=== PATIENT | male | born 1935 | race Caucasian/White ===

== ENCOUNTER 2017-04-03 18:03 | Inpatient (IN) ==
[2017-04-03] MEDS ORDERED: *HR* LORazepam Oral Conc 2 MG/ML SL PRN (19:40)
[2017-04-03] MEDS ORDERED: Morphine Oral CONC 5 MG/0.25 ML ORAL.SYG SL PRN (19:42)
[2017-04-03] MEDS ORDERED: Acetaminophen 650 MG RECTAL SUPP RC PRN (19:46)
[2017-04-03] MEDS: Morphine Oral CONC 5 MG/0.25 ML ORAL.SYG SL PRN (21:04)
[2017-04-04] MEDS: Morphine Oral CONC 5 MG/0.25 ML ORAL.SYG SL PRN ×4 (03:29→23:36)
--- NOTE | 2017-04-04 16:22 | Internal Med History&Physical ---
Date of Encounter: 04/04/17 Time of Encounter: 15:50 Assessment and Plan (1) Bladder cancer Current visit: Yes Status: Acute Multiple sites of metastases. He has been declared DNR CC. Comfort measures will be given. Expected survival is 5-7 days. Qualifiers: Bladder location: unspecified site Qualified Code(s): C67.9 - Malignant neoplasm of bladder, unspecified Internal Medicine - H&P: HPI Chief complaint: Metastatic bladder cancer Admitted From: Hospital to Hospital Transfer History of present illness: Mr. Antoine is a 81 year old male who was admitted from [facility] to general inpatient hospice at [facility] for pain control. He was diagnosed a few weeks ago with bladder cancer. 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 He was admitted to hospice service yesterday for pain control and other comfort measures. There was no previous history of malignancy prior to the bladder cancer. He has anemia. Past Med Surg Social Fam HX - Past Medical History Medical history: cancer, CVA, hyperlipidemia, hypertension, kidney stones Psychiatric history: no psych history - Past Surgical History Surgical History: cataract, other - Social History Smoking Status: Former smoker Smokeless Tobacco Status: No Alcohol use: none Drug use: none - Family History Father Living Status: Hx Family Cardiac Disorders: Yes (HTN) Internal Medicine - H&P: Meds Acetaminophen [Tylenol] 1,000 mg PO HS 02/22/17 [History] Cholecalciferol (D-3) [Vitamin D] 1,000 unit PO DAILY 02/22/17 [History] Ferrous Sulfate [Iron] 325 mg PO DAILY 02/22/17 [History] Warfarin [Coumadin] 2.5 mg PO 3XW 02/22/17 [History] Warfarin [Coumadin] 5 mg PO 4XW 02/22/17 [History] Metoprolol Tartrate [Lopressor] 50 mg PO BID #60 tablet 03/12/17 [Rx] 3 Allergy/AdvReac Type Severity Reaction Status Date / Time No Known Allergies Allergy Verified 02/22/17 12:50 All Systems PM: A 10-system review of systems was performed and is negative for pertinent findings except as documented above in the HPI. Review of systems: Review of systems is obtained from the patient's daughter. Patient is lethargic. Gen.: His weight has decreased approximately 10 pounds in the past few weeks Cardiovascular: He has history of hypertension but no IA heart failure angina DVT or pulmonary embolus. He had abdominal aortic aneurysm with endograft procedure several years ago. Respiratory: He smoked from age [age] and has a diagnosis of COPD. GI: He has metastases from bladder cancer to liver. There is no other known disorders of liver gallbladder or exocrine pancreas : He had bladder cancer and metastases as per above. He has chronic kidney disease. Neurologic: He had numerous mini strokes in the past with right arm weakness and numbness. He has had no seizures. Endocrine: He has history of hyperlipidemia but no known diabetes or thyroid disease Hematology/oncology: As per history of present illness Psychiatric: He has no anxiety depression or other mental health issues Muscle skeletal: He has no significant DJD gout or other bone joint or muscle disorders. - Constitutional Vitals: Temp Pulse Resp BP Pulse Ox 97.7 F 78 16 107/65 97 04/03/17 18:58 04/03/17 18:58 02 18:58 04/03/17 18:58 04/03/17 18:58 Exam: Gen.: He is a well-developed well-nourished male lying in bed who is lethargic but awakens to answer an occasional question with a short answer. 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 The right eye shows no scleral icterus. Mouth: Mucosa is dry Neck: There is no thyromegaly or adenopathy noted. Heart: Tachycardic at rate approximately 124/m. Lungs: No wheezes or crackles are heard. Abdomen: Soft and nontender. No masses or guarding are noted. Extremities: There is no cyanosis edema or clubbing noted. Dorsalis pedis and posttibial pulses are 1-2 over 2 bilaterally. Neurologic: Mental status: He is able to answer an occasional yes/no question. Cranial nerves: Smile is symmetric. Forehead wrinkles bilaterally. Tongue protrudes midline. EOMI. Motor: There is no pronator drift. Cerebellar: Finger to nose is intact bilaterally. Skin: Warm and dry
[2017-04-04] MEDS: *HR* FentaNYL PATCH 25 MCG PATCH TD SCH (17:17)
[2017-04-05] MEDS: Morphine Oral CONC 5 MG/0.25 ML ORAL.SYG SL PRN (04:07)
[2017-04-05] MEDS ORDERED: *HR* LORazepam Oral Conc 2 MG/ML SL PRN (11:10)
--- NOTE | 2017-04-05 11:20 | Internal Med Progress Note ---
Date of Encounter: 04/05/17 Time of Encounter: 11:10 - Assessment and plan (1) Bladder cancer Current Visit: Yes Status: Acute Assessment and plan: April 04. Continue present comfort measures. Qualifiers: Bladder location: unspecified site Qualified Code(s): C67.9 - Malignant neoplasm of bladder, unspecified - Subjective Interval history: April 05. No new problems have arisen. He is less responsive per family report. - Constitutional Vitals: Temp Pulse Resp BP Pulse Ox 98.2 F 87 16 118/63 95 04/05/17 07:10 04/05/17 07:10 04/05/17 07:10 04/05/17 07:10 04/05/17 07:10 Exam: He is lying in bed and appears in no severe distress. He is slightly responsive to voice and light touch. Heart is regular with rate 108/m. Lungs are clear anteriorly. Consult Discharge Plan - Plan Referrals: Dieudonne Barbosa MD [Primary Care Provider] - 1 week
[2017-04-06] MEDS: Morphine Oral CONC 5 MG/0.25 ML ORAL.SYG SL PRN ×4 (01:27→17:51)
--- NOTE | 2017-04-06 11:17 | Internal Med Progress Note ---
Date of Encounter: 04/06/17 Time of Encounter: 11:10 - Assessment and plan (1) Bladder cancer Current Visit: Yes Status: Acute Assessment and plan: April 04. Continue present comfort measures. Qualifiers: Bladder location: unspecified site Qualified Code(s): C67.9 - Malignant neoplasm of bladder, unspecified - Subjective Interval history: April 05. No new problems have arisen. He is less responsive per family report. April 06. No new problems have arisen. He is more responsive today. - Constitutional Vitals: Temp Pulse Resp BP Pulse Ox 98.5 F 116 18 116/77 88 04/06/17 06:35 04/06/17 06:35 04/06/17 06:35 04/06/17 06:35 04/06/17 06:35 Exam: His eyes are open and he is able to respond somewhat to questions. Heart is regular rate approximately 112/m. Lungs are clear anteriorly. Extremities show no edema. Reviewed his medications Consult Discharge Plan - Plan Referrals: Dieudonne Barbosa MD [Primary Care Provider] - 1 week
[2017-04-07] MEDS: Morphine Oral CONC 5 MG/0.25 ML ORAL.SYG SL PRN (12:17)
--- NOTE | 2017-04-07 12:18 | Internal Med Progress Note ---
Date of Encounter: 04/07/17 Time of Encounter: 12:00 - Assessment and plan (1) Bladder cancer Current Visit: Yes Status: Acute Assessment and plan: April 04. Continue present comfort measures. Qualifiers: Bladder location: unspecified site Qualified Code(s): C67.9 - Malignant neoplasm of bladder, unspecified - Subjective Interval history: April 05. No new problems have arisen. He is less responsive per family report. April 06. No new problems have arisen. He is more responsive today. April 07. No new problems have arisen. - Constitutional Vitals: Temp Pulse Resp BP Pulse Ox 97.8 F 102 20 106/73 77 04/07/17 10:43 04/07/17 10:43 04/07/17 10:43 04/07/17 10:43 04/07/17 10:43 Exam: He is lying in bed resting. He Opens His Eyes to Voice and Light Touch but Makes No Attempt to Speak. Heart Is Regular with Rate Approximately 108/M. Lungs Are Clear Anteriorly. Extremities Show No Edema. Consult Discharge Plan - Plan Referrals: Dieudonne Barbosa MD [Primary Care Provider] - 1 week
[2017-04-07] MEDS: *HR* FentaNYL PATCH 25 MCG PATCH TD SCH (17:24)
--- NOTE | 2017-04-08 10:10 | Internal Med Progress Note ---
Date of Encounter: 04/08/17 Time of Encounter: 10:00 - Assessment and plan (1) Bladder cancer Current Visit: Yes Status: Acute Assessment and plan: April 04. Continue present comfort measures. Qualifiers: Bladder location: unspecified site Qualified Code(s): C67.9 - Malignant neoplasm of bladder, unspecified - Subjective Interval history: April 05. No new problems have arisen. He is less responsive per family report. April 06. No new problems have arisen. He is more responsive today. April 07. No new problems have arisen. April 08. No new problems have arisen. - Constitutional Vitals: Temp Pulse Resp BP Pulse Ox 99.0 F 103 24 101/67 79 04/07/17 18:00 04/07/17 18:00 04/07/17 18:00 04/07/17 18:00 04/07/17 18:00 Exam: He is lying in bed with no significant response to voice or light touch. Lungs showed upper airway rhonchi. Heart tones are too soft to be heard. Pulses not easily palpable. Extremities show no edema. Consult Discharge Plan - Plan Referrals: Dieudonne Barbosa MD [Primary Care Provider] - 1 week
[2017-04-08] MEDS: Morphine Oral CONC 5 MG/0.25 ML ORAL.SYG SL PRN (22:40)
[2017-04-09] MEDS ORDERED: *HR* FentaNYL PATCH 75 MCG PATCH TD SCH (10:30)
[2017-04-09] MEDS: Morphine Oral CONC 5 MG/0.25 ML ORAL.SYG SL PRN ×2 (15:01→20:48)
[2017-04-10] MEDS ORDERED: *HR* FentaNYL PATCH 25 MCG PATCH TD SCH (09:00)
[2017-04-10] MEDS: Morphine Oral CONC 5 MG/0.25 ML ORAL.SYG SL PRN ×2 (13:02→19:39)
--- NOTE | 2017-04-10 15:12 | Internal Med Progress Note ---
Date of Encounter: 04/10/17 Time of Encounter: 15:00 - Assessment and plan (1) Bladder cancer Current Visit: Yes Status: Acute Assessment and plan: April 04. Continue present comfort measures. April 10. Duragesic patch was increased yesterday to 75 g/hr because of evidence of inadequate pain control. Qualifiers: Bladder location: unspecified site Qualified Code(s): C67.9 - Malignant neoplasm of bladder, unspecified - Subjective Interval history: April 05. No new problems have arisen. He is less responsive per family report. April 06. No new problems have arisen. He is more responsive today. April 07. No new problems have arisen. April 08. No new problems have arisen. April 10. No new problems have arisen. - Constitutional Vitals: Temp Pulse Resp BP Pulse Ox 98 F 95 24 102/58 93 04/10/17 12:00 04/10/17 12:00 04/10/17 12:00 04/10/17 12:04/10/17 12:00 Exam: He is lying in bed and does not respond to voice or light touch. He has occasional involuntary jerking of his arms more on the right than the left. Heart is regular with rate approximately 96/m. Lungs are clear anteriorly. Extremities show no edema. Reviewed his vitals and medications. Consult Discharge Plan - Plan Referrals: Dieudonne Barbosa MD [Primary Care Provider] - 1 week
[2017-04-11] MEDS: Morphine Oral CONC 5 MG/0.25 ML ORAL.SYG SL PRN ×5 (00:40→12:58)
[2017-04-11 09:10] VITALS: BP 81/50
--- NOTE | 2017-04-11 13:28 | Discharge Summary ---
Date of Encounter: 04/11/17 Time of Encounter: 13:10 - Discharge Diagnosis (1) Bladder cancer Priority: Primary Status: Acute Qualifiers: Bladder location: unspecified site Qualified Code(s): C67.9 - Malignant neoplasm of bladder, unspecified Hospital course: Mr. Antoine is a 81 year old male who was admitted from [facility] to general inpatient hospice at [facility] for pain control. He was diagnosed a few weeks ago with bladder cancer. 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 He was admitted to hospice service yesterday for pain control and other comfort measures. He was admitted to inpatient hospice on 04/04/2017. He was started on comfort meds. In the afternoon of April 11 when I saw him his blood pressure had decreased and there was mottling helping on his feet. Several minutes later he was found without pulse or respirations and was pronounced at 1325. - Time Spent with Patient Total time spent providing and/or coordinating discharge services: - Discharge Medications Home Medications: Acetaminophen [Tylenol] 1,000 mg PO HS 02/22/17 [History] Cholecalciferol (D-3) [Vitamin D] 1,000 unit PO DAILY 02/22/17 [History] Ferrous Sulfate [Iron] 325 mg PO DAILY 02/22/17 [History] Warfarin [Coumadin] 2.5 mg PO 3XW 02/22/17 [History] Warfarin [Coumadin] 5 mg PO 4XW 02/22/17 [History] Metoprolol Tartrate [Lopressor] 50 mg PO BID #60 tablet 03/12/17 [Rx] Allergies/Adverse Reactions: 3 Allergy/AdvReac Type Severity Reaction Status Date / Time No Known Allergies Allergy Verified 02/22/17 12:50 Date of admission: 04/03/17 18:37 Primary care physician: Dieudonne Barbosa MD Consults: 04/04/17 01:12 Consult to [facility] [CONS] Routine Reason for SW Consult: Discharge planning, hospice care. - Constitutional Vitals: Temp Pulse Resp BP Pulse Ox 97.5 F L 85 31 81/50 91 04/10/17 19:29 04/11/17 09:09 04/11/17 09:09 04/11/17 09:09 04/11/17 09:09 - Patient Status Disposition: - Discharge Instructions Follow Up With: Dieudonne Barbosa MD [Primary Care Provider] - 1 week
== END 2017-04-11 13:24 | disposition expired | DRG 948 ==
LOC: INPPIK 18:37
PROVIDERS: ADMIT Internal Medicine; ATTEND Internal Medicine